=== PATIENT | female | born 1930 | race Hispanic/Latino ===

== ENCOUNTER 2017-08-20 12:32 | Emergency (ER) | payer MEDICAID, MEDICARE, OTHER ==
[2017-08-20] VITALS (8 sets, daily range): BP systolic 114–133; BP diastolic 70–102
[~2017-08-20] VITALS: Ht 154.9 cm; Wt 63.5 kg
[2017-08-20] MEDS ORDERED: dilTIAZem HCl 25mg/5ml Inj IV ONE ×2 (12:45→17:00)
[2017-08-20 13:47] LABS: MEAN CORPUSCULAR HEMOGLOBIN 32.8 PG (27.0-31.0); MEAN CORPUSCULAR HGB CONC 33.9 G/DL (32.0-36.0); MEAN CORPUSCULAR VOLUME 97 FL (80-99); MEAN PLATELET VOLUME 5.2 FL (6.5-10.1); PLATELET COUNT 341 K/UL (150-450); RED BLOOD COUNT 4.19 M/UL (4.20-5.40); RED CELL DISTRIBUTION WIDTH 11.1 % (11.6-14.8); WHITE BLOOD COUNT 10.3 K/UL (4.8-10.8)
[2017-08-20 13:57] LABS: PROTHROMBIN TIME 10.4 SEC (9.30-11.50)
[2017-08-20 14:14] LABS: ALANINE AMINOTRANSFERASE 22 U/L (12-78); ANION GAP 16 mmol/L (5-15); ASPARTATE AMINO TRANSFERASE 32 U/L (15-37); CALCIUM 9.2 MG/DL (8.5-10.1); CARBON DIOXIDE 21 MMOL/L (21-32); CHLORIDE 95 MMOL/L (98-107); CKMB 0.8 NG/ML (0.0-3.6); POTASSIUM 3.9 MMOL/L (3.5-5.1); SODIUM 132 MMOL/L (136-145); TOTAL PROTEIN 7.1 G/DL (6.4-8.2)
[2017-08-20 14:27] LABS: BAND NEUTROPHILS % (MANUAL) 0 % (0-8); BASOPHILS % (MANUAL) 0 % (0-2); EOSINOPHILS % (MANUAL) 0 % (0-3); LYMPHOCYTES % (MANUAL) 3 % (20-45); NEUTROPHILS % (MANUAL) 95 % (45-75); PLATELET ESTIMATE ADEQUATE; PLATELET MORPHOLOGY NORMAL; TOTAL CELLS COUNTED 100
--- NOTE | 2017-08-20 14:45 | Diagnostic Imaging Report ---
Indication: Chest pain, shortness of breath Technique: One view of the chest Comparison: 03/05/2013 Findings: Less optimal inspiration. There is scalloping of the right hemidiaphragm again demonstrated. There is elevation of the left hemidiaphragm again demonstrated. Basilar atelectatic changes are seen on the right. The heart is mildly enlarged. The lungs and pleural spaces are otherwise clear Impression: Cardiomegaly Right lateral basilar atelectatic changes. No acute process otherwise
[2017-08-20 15:46] LABS: KETONES,URINE NEGATIVE (NEGATIVE); LEUKOCYTE ESTERASE ,URINE 3+ (NEGATIVE); NITRITE,URINE POSITIVE (NEGATIVE); PH,URINE 5 (4.5-8.0); PROTEIN,URINE 2+ (NEGATIVE); UROBILINOGEN,URINE NORMAL MG/DL (0.0-1.0)
[2017-08-20 15:50] LABS: APPEARANCE,URINE SLIGHTLY CLOUDY
[2017-08-20 16:13] LABS: SQUAMOUS EPITHELIAL CELL,UR FEW /LPF (NONE/OCC)
[2017-08-20 16:14] LABS: AMORPHOUS SEDIMENT,UR MODERATE /LPF; BACTERIA,URINE MANY /HPF
--- NOTE | 2017-08-20 16:27 | Emergency Room Report ---
History of Present Illness General Chief Complaint: Chest Pain Source: EMS Present Illness HPI This patient complains of chest pain that started today at about a half-hour prior to arrival. She denies recent illness. She denies cough or congestion. She denies fever or chills. She denies nausea or vomiting. She has no other complaints. Allergies: Coded Allergies: No Known Allergies (Unverified , 08/20/17) Patient History Past Medical History: see triage record, HTN, asthma Social History: Denies: smoking, alcohol use, drug use Reviewed Nursing Documentation: PMH: Agreed, PSxH: Agreed Nursing Documentation-PMH Past Medical History: No History, Except For Hx Cardiac Problems: No Hx Hypertension: Yes Hx Pacemaker: No Hx Asthma: Yes Hx COPD: No Hx Diabetes: No Hx Cancer: No Hx Gastrointestinal Problems: No Hx Dialysis: No Hx Neurological Problems: No Hx Cerebrovascular Accident: No Hx Seizures: No Review of Systems All Other Systems: negative except mentioned in HPI Physical Exam Vital Signs Date Time Temp Pulse Resp B/P (MAP) Pulse Ox O2 Delivery O2 Flow Rate FiO2 08/20/17 12:14 98.4 130 20 138/80 99 Room Air Sp02 EP Interpretation: reviewed, normal General Appearance: no apparent distress, alert, GCS 15, non-toxic Head: normocephalic, atraumatic Eyes: bilateral eye normal inspection, bilateral eye PERRL ENT: hearing grossly normal, normal pharynx, no angioedema, normal voice Neck: full range of motion, supple/symm/no masses Respiratory: chest non-tender, lungs clear, normal breath sounds, speaking full sentences Cardiovascular #1: no edema, tachycardia, irregularly irregular Gastrointestinal: normal bowel sounds, non tender, soft, non-distended, no guarding, no rebound Rectal: deferred Genitourinary: normal inspection, no CVA tenderness Musculoskeletal: back normal, gait/station normal, normal range of motion, non- tender Neurologic: alert, oriented x3, responsive, motor strength/tone normal, sensory intact, speech normal Psychiatric: judgement/insight normal, memory normal, mood/affect normal, no suicidal/homicidal ideation Skin: normal color, no rash, warm/dry, well hydrated Medical Decision Making Diagnostic Impression: Primary Impression: Atrial fibrillation with rapid ventricular response Additional Impressions: Chest pain UTI (urinary tract infection) Renal failure ER Course This elderly female presented in atrial fibrillation with a rapid ventricular rate. She was also complaining of chest pain. There is no history of atrial fibrillation that I could find in this patient's chart. The patient is elderly but denies any history of this. She was given diltiazem 10 mg IV and had resolution of her rapid ventricular rate any true fibrillation. Patient also has a urinary tract infection. She was given broad-spectrum antibiotics for this. The patient's creatinine is 2.0. I do not have a recent comparison. Given the patient's chest pain and age she is high risk for acute coronary syndrome and pathologic arrhythmia as. Therefore, the patient will be admitted for further evaluation and treatment and to undergo evaluation by a thoracic medicine specialist. Laboratory Tests Test 08/20/17 13:00 08/20/17 15:17 White Blood Count 10.3 K/UL (4.8-10.8) Red Blood Count 4.19 M/UL (4.20-5.40) L Hemoglobin 13.7 G/DL (12.0-16.0) Hematocrit 40.6 % (37.0-47.0) Mean Corpuscular Volume 97 FL (80-99) Mean Corpuscular Hemoglobin 32.8 PG (27.0-31.0) H Mean Corpuscular Hemoglobin Concent 33.9 G/DL (32.0-36.0) Red Cell Distribution Width 11.1 % (11.6-14.8) L Platelet Count 341 K/UL (150-450) Mean Platelet Volume 5.2 FL (6.5-10.1) L Neutrophils (%) (Auto) % (45.0-75.0) Lymphocytes (%) (Auto) % (20.0-45.0) Monocytes (%) (Auto) % (1.0-10.0) Eosinophils (%) (Auto) % (0.0-3.0) Basophils (%) (Auto) % (0.0-2.0) Differential Total Cells Counted 100 Neutrophils % (Manual) 95 % (45-75) H Lymphocytes % (Manual) 3 % (20-45) L Monocytes % (Manual) 2 % (1-10) Eosinophils % (Manual) 0 % (0-3) Basophils % (Manual) 0 % (0-2) Band Neutrophils 0 % (0-8) Platelet Estimate Adequate Platelet Morphology Normal Red Blood Cell Morphology Normal Prothrombin Time 10.4 SEC (9.30-11.50) Prothrombin Time INR 1.0 (0.9-1.1) PTT 25 SEC (23-33) Sodium Level 132 MMOL/L (136-145) L Potassium Level 3.9 MMOL/L (3.5-5.1) Chloride Level 95 MMOL/L (98-107) L Carbon Dioxide Level 21 MMOL/L (21-32) Anion Gap 16 mmol/L (5-15) H Blood Urea Nitrogen 27 mg/dL (7-18) H Creatinine 2.0 MG/DL (0.55-1.30) H Estimate Glomerular Filtration Rate mL/min (>60) Glucose Level 168 MG/DL (74-106) H Calcium Level 9.2 MG/DL (8.5-10.1) Total Bilirubin 0.7 MG/DL (0.2-1.0) Aspartate Amino Transferase (AST) 32 U/L (15-37) Alanine Aminotransferase (ALT) 22 U/L (12-78) Alkaline Phosphatase 65 U/L (46-116) Total Creatine Kinase 62 U/L (26-308) Creatine Kinase MB 0.8 NG/ML (0.0-3.6) Creatine Kinase MB Relative Index 1.2 Troponin I 0.000 ng/mL (0.000-0.056) Pro-B-Type Natriuretic Peptide 1715 pg/mL (0-125) H Total Protein 7.1 G/DL (6.4-8.2) Albumin 3.6 G/DL (3.4-5.0) Globulin 3.5 g/dL Albumin/Globulin Ratio 1.0 (1.0-2.7) Urine Color Yellow Urine Appearance Slightly cloudy Urine pH 5 (4.5-8.0) Urine Specific [place] 1.020 (1.005-1.035) Urine Protein 2+ (NEGATIVE) H Urine Glucose (UA) 1+ (NEGATIVE) H Urine Ketones Negative (NEGATIVE) Urine Occult Blood 1+ (NEGATIVE) H Urine Nitrite Positive (NEGATIVE) H Urine Bilirubin Negative (NEGATIVE) Urine Urobilinogen Normal MG/DL (0.0-1.0) Urine Leukocyte Esterase 3+ (NEGATIVE) H Urine RBC 2-4 /HPF (0 - 2) H Urine WBC 10-15 /HPF (0 - 2) H Urine Squamous Epithelial Cells Few /LPF (NONE/OCC) Urine Amorphous Sediment Moderate /LPF (NONE) H Urine Bacteria Many /HPF (NONE) H Urine Fine Granular Casts 2-4 /LPF (NONE) H EKG Diagnostic Results Rate: tachycardiac Rhythm: other - A.fib w/RVR ST Segments: no acute changes Rhythm Strip Diag. Results EP Interpretation: yes Rate: 130's Rhythm: no PVC's, other Other Impression A.fib w/ RVR, then NSR 80's Chest X-Ray Diagnostic Results Chest X-Ray Diagnostic Results : Chest X-Ray Ordered: Yes # of Views/Limited/Complete: 1 View Indication: Chest Pain EP Interpretation: No Interpretation: no consolidation, no effusion, no pneumothorax, no acute cardiopulmonary disease, other - Cardiomegaly Impression: No acute disease Electronically Signed by: Lilian Last Vital Signs Date Time Temp Pulse Resp B/P (MAP) Pulse Ox O2 Delivery O2 Flow Rate FiO2 08/20/17 12:54 140 132/110 08/20/17 12:45 98.4 26 99 Room Air Disposition: ADMITTED INPATIENT Condition: Serious Referrals: COURTNEY MENDIOLA (PCP) AKHIL BRIDGES D.O. Aug 20, 2017 16:27
[2017-08-20] MEDS ORDERED: cefTRIAXone 1 GM in NS 55 ML IVPB ONE (17:00)
[2017-08-21] VITALS: BP 127/65
[2017-08-21 01:43] VITALS: BP 121/84
--- NOTE | 2017-08-25 12:13 | Cardiology Report ---
APPROVED REPORT EKG Measurement Heart [id number] Atrial fibrillation with RVR Nonspecific T wave abnormality Abnormal ECG
== END 2017-08-21 01:48 | disposition short-term general hospital (02) ==
LOC: EDBD 12:32 → EMR 13:41 → EDBEDREQ 19:26 → EMR 08-21 01:48
DX: I48.91 Unspecified atrial fibrillation (principal); R07.9 Chest pain, unspecified; I10 Essential (primary) hypertension; J45.909 Unspecified asthma, uncomplicated; N39.0 Urinary tract infection, site not specified
CPT/HCPCS: 36415; 71010; 80053; 81003; 82550; 82553; 83880; 84484; 85007; 85025; 85610; 85730; 87086; 87181; 93005; 99285; J0696